=== PATIENT | female | born 1940 | race Caucasian/White ===

== ENCOUNTER 2022-04-25 17:56 | Emergency (ER) | payer MEDICARE, SELFPAY ==
[2022-04-25 18:10] VITALS: BP 194/91; PULSE 65; RESP 18; TEMP 36.6; O2SAT 98; BMI 25.8
--- NOTE | 2022-04-25 18:24 | DI.CT.S_ITS ---
PROCEDURE: CT HEAD/BRAIN WO CON INDICATIONS: impaired speech TECHNIQUE: Noncontrast 4.5 mm thick angled axial sections acquired from the foramen magnum to the vertex, with coronal and sagittal reformats. For radiation dose reduction, the following was used: automated exposure control, adjustment of mA and/or kV according to patient size. COMPARISON: None. FINDINGS: Image quality: Excellent. CSF spaces: Basal cisterns are patent. No extra-axial fluid collections. Ventricles are normal in size and shape. Brain: No midline shift. No intracranial masses or hemorrhage. Kramer-white matter interface is normal. Moderate cerebral and cerebellar volume loss with multifocal white matter chronic ischemic change noted. Atherosclerotic calcification noted associated with cavernous segments of both internal carotid arteries. Skull and face: Calvarium and visualized facial bones are intact, without suspicious lesions. Sinuses: Visualized sinuses and mastoids are clear. IMPRESSION: Atrophy and chronic ischemic change without intracranial hemorrhage or mass effect Approved by: Danish Metzger M.D. on 04/25/2022 at 17:57
--- NOTE | 2022-04-25 18:24 | DI.RAD.S_ITS ---
PROCEDURE: XR CHEST 1V INDICATIONS: Possible stroke TECHNIQUE: One view of the chest was acquired. COMPARISON: Orlin BREE Rivera, CHEST 2 VIEW, 05/12/2014, 13:43. FINDINGS: Surgical changes and devices: None. Lungs and pleura: Lungs are clear. No pleural effusions or pneumothorax. 7 mm round opacity in the right upper lobe. Mediastinum: Mediastinal contours appear normal. Heart size is normal. Bones and chest wall: No suspicious bony lesions. Overlying soft tissues appear unremarkable. IMPRESSION: 1. No acute cardiopulmonary abnormality. 2. 7 mm opacity in the right upper lobe. Recommend CT of the chest. Dictated by: Aakash Burrell M.D. on 04/25/2022 at 19:44 Approved by: Aakash Burrell M.D. on 04/25/2022 at 19:45
[2022-04-25 18:35] LABS: Add Manual Diff / Slide Review NO; Basophils Absolute Auto 100 /uL (0-100); Basophils Percent Auto 0.7 % (0-2); Eosinophils Absolute Auto 500 /uL (0-450); Eosinophils Percent Auto 5.5 % (2-4); Hematocrit 38.1 % (36-46); Lymphocytes Absolute Auto 2000 /uL (1100-4500); Lymphocytes Percent Auto 23.9 % (25-40); Mean Corpuscular HGB Conc 34.1 % (30-36); Mean Corpuscular Hemoglobin 30.3 PG (26-34); Mean Corpuscular Volume 88.8 fL (80-100); Monocytes Absolute Auto 500 /uL (0-900); Monocytes Percent Auto 6.2 % (3-14); Neutrophils Absolute Auto 5400 /uL (1500-7000); Neutrophils Percent Auto 63.7 % (50-75); Platelet Count 199 X10^3/uL (150-400); Red Blood Cell Count 4.29 X10^6/uL (4.0-5.2); Red Cell Distribution Width 14.1 % (11.6-14.8); White Blood Cell Count 8.5 X10^3/uL (4.5-11.0)
[2022-04-25 18:39] LABS: Alanine Aminotransferase 22 IU/L (<35); Albumin 4.2 g/dL (3.5-5.0); Albumin Globulin Ratio 1.3 (1.0-2.8); Alkaline Phosphatase 117 U/L (38-126); Aspartate Aminotransferase 26 IU/L (14-36); BUN Creatinine Ratio 22.3 (6-22); Bilirubin Total 0.4 mg/dL (0.2-1.3); Blood Urea Nitrogen 21 mg/dL (7-17); Carbon Dioxide 23 mmol/L (22-32); Chloride 106 mmol/L (98-107); Creatine Kinase 67 U/L (30-135); Estimated Glomerular Filt Rate > 60 mL/min (>60); Globulin 3.3 g/dL (1.7-4.1); Glucose 97 mg/dL (80-110); HEMOLYSIS < 15 (0-50); Magnesium 2.1 mg/dL (1.6-2.3); Potassium 4.1 mmol/L (3.4-5.1); Sodium 137 mmol/L (137-145); Total Protein 7.5 g/dL (6.3-8.2)
[2022-04-25 18:43] LABS: PTT Partial Thromboplastin Tim 28 SECONDS (26-36)
[2022-04-25 18:51] LABS: Troponin I < 0.012 ng/mL (0.01-0.034)
[2022-04-25 20:18] VITALS: BP 175/79; PULSE 65; O2SAT 97
[2022-04-25 20:30] VITALS: PULSE 64; O2SAT 98
[2022-04-25 20:31] VITALS: BP 126/59; PULSE 65; O2SAT 98
--- NOTE | 2022-04-25 20:48 | ED_ITS ---
HPI - Neuro Symptoms/Deficit General Chief Complaint: Neuro Symptoms/Deficit Stated Complaint: Sent by Dr Lewis Speech imparement, Balance prob Time Seen by Provider: 04/25/22 18:25 Source: patient Mode of arrival: Ambulatory History of Present Illness HPI Narrative: 81-year-old female former smoker with history of hyperlipidemia and di verticulitis presents at the request of her primary care provider for at least 6 months of ongoing speech difficulty in balance problems. She has been seeing him since and states that there has been no change in her symptoms but it has not gotten better hence her visit to us. She denies any headache or blurred vision. She denies any extremity numbness, weakness or tingling. She denies chest pain or shortness of breath. She is had no nausea, vomiting or diarrhea On Anticoagulants: No Related Data Home Medications Medication Instructions Recorded Confirmed CA PANTOTHENATE/FOLIC ACID/VIT 1 tab PO QDAY ##0 11/13/12 04/14/22 (MULTIVITAMIN) Fish Oil 1,000 mg PO QDAY ##3 11/13/12 04/14/22 cholecalciferol (vitamin D3) 50 2,000 iu PO PRN ##0 11/13/12 04/14/22 mcg (2,000 unit) capsule (Vitamin D3) [PSYHILLIUM] Q DAY ##0 08/15/16 04/14/22 Previous Rx's Medication Instructions Recorded hydrocortisone 2.5 % topical cream 1 wesley topical BID ##30 08/15/16 estradiol 0.01% (0.1 mg/gram) See Rx Instructions vaginal SEE 04/13/20 vaginal cream (Estrace) INSTRUCTIONS Vaginal atrophy #1 tube clobetasol 0.05 % topical ointment 1 applic topical SEE INSTRUCTIONS 03/24/21 Lichen sclerosis #30 grams Allergies Allergy/AdvReac Type Severity Reaction Status Date / Time azithromycin [AZITHROMYCIN] AdvReac Unknown GI UPSET Verified 04/25/22 18:31 codeine [CODEINE] AdvReac Unknown GI UPSET Verified 04/25/22 18:31 doxycycline [DOXYCYCLINE] AdvReac Unknown GI UPSET Verified 04/25/22 18:31 Review of Systems Review of Systems Narrative: GENERAL: Denies chills, fatigue, malaise, fever, sweats. HEENT: Denies sinus pain, ear pain, sore throat, difficulty swallowing, dizziness. RESPIRATORY: Denies dyspnea, cough, wheezing, hemoptysis, sputum. CARDIOVASCULAR: Denies chest pain, palpitations, orthopnea, edema, GASTROINTESTINAL: Denies nausea, vomiting, abdominal pain, diarrhea, constipation, melena. : Denies dysuria, frequency, incontinence, hematuria, urinary retention. MUSCULOSKELETAL: denies weakness, joint pain, or bony pain SKIN: Denies rash, skin lesions, or other NEUROLOGIC: See HPI PSYCHIATRIC: No concerning psychosocial issues. 12 point review of systems is negative except for those stated above Hematologic/Lymphatic On Anticoagulants: No Patient History Medical History Chicken pox Hip fracture, left (2013) Measles Melanoma Surgical History Anesthesia History of left hip replacement (2013) Family History Father Lung cancer Mother No problems noted. Sister No problems noted. Sister No problems noted. Social History Smoking Status: Former smoker Smoking Status: Former smoker alcohol intake frequency: 0-2 drinks per day Alcohol type: wine Substance Use Type: does not use Exam Narrative Exam Narrative: GENERAL: [81] year old patient appears stated age. Well-developed patient, in mild distress. HEAD: Atraumatic. Normocephalic. EYES: Pupils equal round and reactive. Extraocular motions intact. No scleral icterus. No injection or drainage. ENT: Nose without bleeding, purulent drainage. Throat without erythema, tonsillar hypertrophy or exudate. Airway patent. NECK: Trachea midline. Non tender CARDIOVASCULAR: Regular rate and rhythm without murmurs, gallops, or rubs. RESPIRATORY: Clear to auscultation. Breath sounds equal bilaterally. No wheezes, rales, or rhonchi. GASTROINTESTINAL: Abdomen soft, non-tender, nondistended. EXTREMITIES: No edema or joint tenderness. BACK: Nontender without deformity or crepitance. No flank tenderness. NEURO: AOx3. Cranial nerves 2-12 grossly intact. She does have pressured speech with some aphasia that she and state has been present for a solid 6 months. No facial asymmetry, no measurable extremity numbness, weakness SKIN: No rash or erythema of visible areas Initial Vital Signs Initial Vital Signs: Vital Signs Temperature 98 F 04/25/22 18:10 Pulse Rate 65 04/25/22 18:10 Respiratory Rate 18 04/25/22 18:10 Blood Pressure 194/91 H 04/25/22 18:10 Pulse Oximetry 98 04/25/22 18:10 Oxygen Delivery Method 04/25/22 18:10 Course Orders Ordered: ED Orders 04/25/22 18:20 EKG-12 Lead Routine 04/25/22 18:21 Complete Blood Count AUTO DIFF Stat Comprehensive Metabolic Panel Stat Magnesium Stat Partial Thromboplastin Time Stat Prothrombin Time INR Stat Troponin & CK Cardiac Panel Stat 04/25/22 18:24 CT head/brain wo con Stat XR chest 1V Stat EKG-12 Lead Stat Vital Signs Vital signs: Vital Signs - 8 hr 04/25/22 18:10 04/25/22 20:18 04/25/22 20:18 Temperature 98 F Pulse Rate 65 65 Respiratory Rate 18 Blood Pressure 194/91 H 175/79 H Pulse Oximetry 98 97 Oxygen Delivery Method Room Air Room Air 04/25/22 20:30 04/25/22 20:31 Temperature Pulse Rate 64 Respiratory Rate Blood Pressure 126/59 L Pulse Oximetry 98 Oxygen Delivery Method Room Air MDM - Neuro Symptoms/Deficit Lab Data Result diagrams: 04/25/22 18:21 04/25/22 18:21 Labs: Lab Results 04/25/22 04/25/22 04/25/22 Range/Units 18:21 18:21 18:21 WBC 8.5 (4.5-11.0) X10^3/uL RBC 4.29 (4.0-5.2) X10^6/uL Hgb 13.0 (12.0-16.0) g/dL Hct 38.1 (36-46) % MCV 88.8 (80-100) fL MCH 30.3 (26-34) PG MCHC 34.1 (30-36) % RDW 14.1 (11.6-14.8) % Plt Count 199 (150-400) X10^3/uL Neut % (Auto) 63.7 (50-75) % Lymph % (Auto) 23.9 L (25-40) % [place] % (Auto) 6.2 (3-14) % Eos % (Auto) 5.5 H (2-4) % Baso % (Auto) 0.7 (0-2) % Neut # (Auto) 5400 (2123-4849) /uL Lymph # (Auto) 2000 (5709-1542) /uL [place] # (Auto) 500 (0-900) /uL Eos # (Auto) 500 H (0-450) /uL Baso # (Auto) 100 (0-100) /uL PT 12.0 (10.1-12.7) SECONDS INR 1.0 (0.9-1.3) APTT 28 (26-36) SECONDS Sodium 137 (137-145) mmol/L Potassium 4.1 (3.4-5.1) mmol/L Chloride 106 (98-107) mmol/L Carbon Dioxide 23 (22-32) mmol/L BUN 21 H (7-17) mg/dL Creatinine 0.94 (0.52-1.04) mg/dL Estimated GFR > 60 (>60) mL/min BUN/Creatinine Ratio 22.3 H (6-22) Glucose 97 (80-110) mg/dL Calcium 9.0 (8.4-10.2) mg/dL Magnesium 2.1 (1.6-2.3) mg/dL Total Bilirubin 0.4 (0.2-1.3) mg/dL AST 26 (14-36) IU/L ALT 22 (<35) IU/L Alkaline Phosphatase 117 (38-126) U/L Total Creatine Kinase 67 (30-135) U/L CK-MB (CK-2) TNP CK-MB (CK-2) Rel Index TNP Troponin I < 0.012 (0.01-0.034) ng/mL Total Protein 7.5 (6.3-8.2) g/dL Albumin 4.2 (3.5-5.0) g/dL Globulin 3.3 (1.7-4.1) g/dL Albumin/Globulin Ratio 1.3 (1.0-2.8) Imaging Data CT scan - head: Radiologist's Impression: Close Head CT (Signed) Danish Metzger - 04/25/22 Chest X-Ray (Signed) Aakash Burrell - 04/25/22 Mammogram Result 02/23/22 Launch?[address] [address] [address] Scan Report Signed Patient: Zehra Vicente MR#: [id number] : 1940 Acct:[id number] Age/Sex: 81 / F Date of Service: 04/25/22 Loc: ED Accession Number: [id number] ?? Procedure: CT head/brain wo con Ordering Provider: Cristina Engel D.O. PROCEDURE:? CT HEAD/BRAIN WO CON ? INDICATIONS:? impaired speech ? TECHNIQUE:? Noncontrast 4.5 mm thick angled axial sections acquired from the foramen magnum to the vertex, with coronal and sagittal reformats.? For radiation dose reduction, the following was used:? automated exposure control, adjustment of mA and/or kV according to patient size.? ? COMPARISON:? None. ? FINDINGS:? Image quality:? Excellent.? ? CSF spaces:? Basal cisterns are patent.? No extra-axial fluid collections.? Ventricles are normal in size and shape.? ? Brain:? No midline shift.? No intracranial masses or hemorrhage.? Kramer-white mat ter interface is normal.? Moderate cerebral and cerebellar volume loss with multifocal white matter chronic ischemic change noted.? Atherosclerotic calcification noted associated with cavernous segments of both internal carotid arteries. ? Skull and face:? Calvarium and visualized facial bones are intact, without suspicious lesions.? ? Sinuses:? Visualized sinuses and mastoids are clear.? ? IMPRESSION:? ? Atrophy and chronic ischemic change without intracranial hemorrhage or mass effect ? ? ? Approved by: Danish Metzger M.D. on 04/25/2022 at 17:57? Discharge Plan Departure Patient Disposition: Home Clinical Impression: Expressive aphasia Instructions: DI for Aphasia Activity Restrictions/Additional Instructions: *You have been diagnosed with [expressive aphasia, no evidence of stroke on CT. Labs are reassuring] *What to do: *Please continue to take your regular medications as directed. *Please follow up with your primary care provider in 2-3 days, call for an appoi ntment. Let them know you were seen in the Emergency Department and that we ask that you be seen in follow up. We will electronically transmit a record of today's note if your PCP is in our system *Return to Emergency Department if you should have any new, worsening or concerning symptoms, such as [fever greater than 101 F, shaking chills, worsening pain, persistent vomiting or other bothersome symptoms] Prescriptions: No Action CA PANTOTHENATE/FOLIC ACID/VIT (MULTIVITAMIN) 1 tab PO QDAY Qty: 0 cholecalciferol (vitamin D3) [Vitamin D3] 2,000 UNIT capsule 2,000 iu PO PRN Qty: 0 Fish Oil 1,000 mg PO QDAY Qty: 3 [PSYHILLIUM] Q DAY Qty: 0 hydrocortisone 2.5 % cream 1 wesley Topical BID Qty: 30 2RF estradiol [Estrace] 0.01 % (0.1 mg/gram) cream See Rx Instructions Vaginal SEE INSTRUCTIONS Qty: 1 1RF Rx Instructions: Apply a small amount to vaginal opening twice a week clobetasol 0.05 % ointment 1 applic Topical SEE INSTRUCTIONS Qty: 30 1RF Rx Instructions: Apply a small amount once a week to twice a day to control itching/burning Referrals: Nasra Lewis MD [Primary Care Provider] - Visit Report Forms: Patient Portal/API
[2022-04-25 21:00] VITALS: O2SAT 96
[2022-04-25 21:01] VITALS: BP 155/71; PULSE 63; O2SAT 97
== END 2022-04-25 21:18 | disposition home or self-care (01) ==
PROVIDERS: Emergency Medicine; Emergency Provider Emergency Medicine; Family Provider Family Medicine; PCP Family Medicine
DX: R47.01 Aphasia (principal)
CPT/HCPCS: 36415; 70450; 71045; 80053; 82550; 83735; 84484; 85025; 85610; 85730; 93005; 99284

== ENCOUNTER → 2022-05-03 13:14 | Outpatient (CLI) | payer MEDICARE, SELFPAY ==
--- NOTE | 2022-05-03 | DI.MRI.S_ITS ---
PROCEDURE: MR HEAD/BRAIN WO CON INDICATIONS: Aphasia TECHNIQUE: Non-contrast axial T1 spin echo, axial T2 fast spin echo, sagittal and axial FLAIR, coronal T2 fast spin echo, axial gradient echo, axial diffusion and ADC through the brain. COMPARISON: [facility], CT, CT HEAD/BRAIN WO CON, 04/25/2022, 18:28. FINDINGS: Image quality: Excellent. CSF spaces: The ventricles are symmetric, yet are abnormally prominent. Basal cisterns are patent. No extra-axial fluid collections. Brain: No intracranial bleeds or mass effects. There is cerebral volume loss for age. There are periventricular and deep white matter chronic small vessel ischemic changes. Brainstem appears normal. Diffusion-weighted images show no acute ischemic insults. No chronic ischemic insults. Normal intravascular flow voids are present. Skull and face: Calvarial bone marrow is normal in signal. Orbits are normal. Note is made of bilateral lens replacements. Sinuses: Sinuses and mastoids are clear. 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 Incidental note is made mild rightward nasal septal deviation. IMPRESSION: No findings of acute or subacute infarction can be seen. Abnormally prominent lateral ventricles, which are larger than would be expected, given the degree of sulcal atrophy. Please consider normal pressure hydrocephalus. Additional findings: Bilateral lens replacements Left-sided sanket bullosa Mild right word nasal septal deviation Dictated by: Jose Antonio Burns M.D. on 05/03/2022 at 13:13 Approved by: Jose Antonio Burns M.D. on 05/03/2022 at 13:15
== END ==
PROVIDERS: Family Provider Family Medicine; PCP Family Medicine; Referring Provider Family Medicine; Visit Provider Family Medicine
DX: R47.01 Aphasia (principal); R47.89 Other speech disturbances; R29.6 Repeated falls; J34.2 Deviated nasal septum; J34.3 Hypertrophy of nasal turbinates; Z96.1 Presence of intraocular lens
CPT/HCPCS: 70551

== ENCOUNTER → 2023-07-27 06:52 | Outpatient (CLI) | payer MEDICARE, SELFPAY ==
--- NOTE | 2023-07-27 06:54 | DI.ECHO.S_ITS ---
[place] [facility]---------+ [facility] +---------+ : : [address] : : : : [id number] : : : : Phone: [phone]+ Echocardiogram Report + + :Name: GEORGE JACINTO Study Date: 07/27/2023 Height: 68 in : :[facility] ReadingLocation: Weight: 165 lb : : Gender: Female BSA: 1.9 m2 : :: 1940 Age: 82 yrs BP: 135/81 mmHg: :Reason For Study: MURMUR : :Ordering Physician: JETT, : :KRISTIAN Performed By: Zaid Gomez : :Referring: KRISTIAN FRAUSTO : + + Interpretation Summary Normal sinus rhythm. Normal LV size and wall thickness; normal wall motion and LV systolic function. EF is 55-60%. Stage I diastolic dysfunction. Normal chamber sizes. No significant valvular abnormalities. No prior study available for comparison. Procedure: A two-dimensional transthoracic echocardiogram with color flow and Doppler was performed. The study quality was technically adequate. There is no prior echocardiogram noted for this patient. The patient was in normal sinus rhythm during the exam. The heart rate ranged between 62-76 bpm during the study. Left Ventricle: The left ventricle is normal in size and wall thickness. The ejection fraction is estimated to be 55-60%. Right Ventricle: The right ventricle is normal in size and function. The right ventricular systolic function is normal. Atria: The left atrial size is normal. Right atrial size is normal. Mitral Valve: The mitral valve is normal in structure and function. There is no mitral valve stenosis. There is trace mitral regurgitation. Aortic Valve: The aortic valve is trileaflet. There is no aortic valve stenosis. No aortic regurgitation is present. Tricuspid Valve: The tricuspid valve is normal in structure and function. There is no tricuspid stenosis. There is mild tricuspid regurgitation. The right ventricular systolic pressure is estimated to be at least 30 mmHg based on an estimated right atrial pressure of 3 mm Hg. Pulmonic Valve: The pulmonic valve is not well visualized. There is no pulmonic valvular stenosis. There is no pulmonic valvular regurgitation. Great Vessels: The aortic root is normal size. The dimensions of the ascending aorta are normal. The IVC is of normal diameter and collapses greater than 50% with a sniff. This suggests a low right atrial pressure of 3 mm Hg. Pericardium/ Pleura There is no pericardial effusion. There is no pleural effusion. MMode/2D Measurements & Calculations LVIDd: 4.8 cm LVOT diam: 1.9 cm LVIDs: 3.0 cm Ao root diam: 3.1 cm FS: 36.7 % asc Aorta Diam: 3.0 cm IVSd: 1.0 cm LVPWd: 0.86 cm LV allen. diameter/BSA (cm/m^2): 2.5 LV sys. diameter/BSA (cm/m^2): 1.6 LA A2 area: 15.1 cm2 RA long axis: 4.2 cm LA A4 area: 18.8 cm2 RA area: 13.1 cm2 LA length (vol): 4.6 cm RA vol: 34.6 ml LA vol: 52.6 ml RA : 18.4 ml/m2 LA vol index: 27.9 ml/m2 IVC diam: 1.8 cm RVD1 (basal): 3.7 cm RVD2 (mid): 3.3 cm TAPSE: 3.5 cm Doppler Measurements & Calculations Ao V2 max: 145.1 cm/sec LVOT Max Hank: 110.6 cm/sec Ao V2 mean: 96.5 cm/sec LV V1 max P.9 mmHg Ao max P.4 mmHg LV V1 VTI: 24.1 cm Ao mean P.2 mmHg KERRI(I,D): 2.4 cm2 Ao V2 VTI: 29.4 cm KERRI(V,D): 2.3 cm2 sev ratio: 0.82 KERRI indexed to BSA (cm^2/m^2): 1.3 MV E max hank: 49.5 cm/sec TR max hank: 260.3 cm/sec MV A max hank: 80.4 cm/sec TR max P.2 mmHg MV E/A: 0.62 PA V2 max: 101.7 cm/sec Med Peak E' Hank: 4.8 cm/sec PA V2 mean: 69.3 cm/sec E/E' med: 10.3 PA mean P.2 mmHg Lat Peak E' Ahnk: 6.2 cm/sec PA pr(Accel): 39.6 mmHg E/E' lat: 8.0 E/e' average: 9.1 MV dec time: 0.25 sec SV(LVOT): 71.3 ml Electronically signed by: Kristian Frausto M.D. on Reading Physician:07/28/2023 05:35 AM
== END ==
PROVIDERS: Family Provider Family Medicine; PCP Family Medicine; Referring Provider Internal Medicine; Visit Provider Internal Medicine
DX: R01.1 Cardiac murmur, unspecified (principal); I07.1 Rheumatic tricuspid insufficiency
CPT/HCPCS: 93306

== ENCOUNTER → 2024-08-09 09:47 | Outpatient (CLI) | payer MEDICARE, SELFPAY ==
--- NOTE | 2024-08-09 09:50 | DI.NM.S_ITS ---
PROCEDURE: NM BONE SCAN WHOLE BODY RADIOPHARMACEUTICAL: 22 mCi Tc-99m MDP IV. INDICATIONS: presence of left artificial hip joint TECHNIQUE: Delayed whole-body scintigrams were obtained approximately 3-4 hours after intravenous injection of radiotracer. Anterior and posterior views were acquired from vertex to feet. Additional left and right oblique views of the pelvis were obtained. COMPARISON: [facility], CR, XR PELVIS WITH LATERAL HIP LEFT, 07/31/2024, 13:44. [facility], CR, XR KNEE 4+ VIEWS LEFT, 07/31/2024, 13:38. FINDINGS: Physiologic uptake is noted within the kidneys and bladder. Photopenia is present within the left hip consistent with arthroplasty. Small areas of uptake are identified within the knees as well as 1st CMC joints. IMPRESSION: Photopenia in left hip consistent with arthroplasty. Areas of uptake within the knees and 1st CMC joints consistent with degenerative change. Dictated by: Fiordaliza Hurtado M.D. on 08/09/2024 at 16:15 Approved by: Fiordaliza Hurtado M.D. on 08/09/2024 at 16:16
== END ==
PROVIDERS: Family Provider Family Medicine; PCP Family Medicine; Referring Provider Orthopaedic Surgery; Visit Provider Orthopaedic Surgery
DX: Z96.642 Presence of left artificial hip joint (principal); Z09 Encounter for follow-up examination after completed treatment for conditions other than malignant neoplasm
CPT/HCPCS: 78306; A9503